=== PATIENT | male | born 1975 | race Caucasian/White ===

== ENCOUNTER 2021-01-06 19:25 | Inpatient (IN) | payer BC ==
[2021-01-06 22:51] LABS: Absolute Lymphocytes (CBC) 2.7 K/uL (0.7-4.9); Basophils % 1.3 % (0-1.3); Hematocrit 25.2 % (39.6-49.0); Lymphocytes % 40.4 % (15.3-44.8); MPV 8.7 fL (7.6-11.3); RBC Red Blood Cell Count 4.05 M/uL (4.33-5.43)
[2021-01-06 22:53] LABS: Protime INR 0.95
[2021-01-06] MEDS ORDERED: NA CHLORIDE 0.9% 250 ML ONE (23:20)
[2021-01-06] MEDS ORDERED: PANTOPRAZOLE 40 MG INJ ONE (23:20)
--- NOTE | 2021-01-06 23:21 | EDPHYS ---
Physician Documentation [facility] Name: Khurram Amanda Age: 45 yrs Sex: Male : 1975 Arrival Date: 01/06/2021 Time: 19:31 Bed 18 Private MD: ED Physician Dale Stacy HPI: 01/06 22:46 This 45 yrs old Male presents to ER via Ambulatory with complaints of LOW rn BLOOD COUNT, black stool. 22:46 The patient presents to the emergency department with rectal bleeding, a small amount, rn dark red blood with bowel movement with multiple such episodes. Onset: The symptoms/episode began/occurred 2 month(s) ago. Abdominal pain: described as achy, located in the epigastric area. Modifying factors: The symptoms are alleviated by nothing, the symptoms are aggravated by nothing. Severity of symptoms: At their worst the symptoms were mild in the emergency department the symptoms are unchanged. The patient has experienced similar episodes in the past. The patient has been recently seen by a physician:. Reports epigastric abd pain, assoc with dark stool and intermittent black stool. no fever. PCP sent blood on Wednesday, called today that hemoglobin low and needs blood transfusion. + hx of gastric ulcers. . Historical: - Allergies: 20:04 No Known Allergies; ca1 - Home Meds: 20:04 None [Active]; ca1 - PMHx: 20:04 Hypertension; ca1 20:04 Ulcers; ca1 - PSHx: 20:04 hand surgery; ca1 - Immunization history:: Client reports having NOT received the Covid vaccine. Flu vaccine is not up to date. - Social history:: Smoking status: Patient denies any tobacco usage or history of. - Family history:: not pertinent. - Hospitalizations: : No recent hospitalization is reported. ROS: 22:46 Constitutional: Negative for fever, chills, and weight loss, Eyes: Negative for injury, rn pain, redness, and discharge, Neck: Negative for injury, pain, and swelling, Cardiovascular: Negative for chest pain, palpitations, and edema, Respiratory: Negative for shortness of breath, cough, wheezing, and pleuritic chest pain, Abdomen/GI: Negative for nausea, vomiting, diarrhea, and constipation, Back: Negative for injury and pain, MS/Extremity: Negative for injury and deformity, Skin: Negative for injury, rash, and discoloration, Neuro: Negative for headache, weakness, numbness, tingling, and seizure. Exam: 22:46 Constitutional: This is a well developed, well nourished patient who is awake, alert, rn and in no acute distress. Head/Face: Normocephalic, atraumatic. Eyes: Pupils equal round and reactive to light, extra-ocular motions intact. Lids and lashes normal. Conjunctiva and sclera are non-icteric and not injected. Cornea within normal limits. Periorbital areas with no swelling, redness, or edema. Cardiovascular: Regular rate and rhythm. No pulse deficits. Respiratory: No increased work of breathing, no retractions or nasal flaring. Abdomen/GI: Soft, non-tender Skin: Warm, dry with normal turgor. Normal color with no rashes, no lesions, and no evidence of cellulitis. MS/ Extremity: Pulses equal, no cyanosis. Neurovascular intact. Full, normal range of motion. Equal circumference. Neuro: Awake and alert, GCS 15 Vital Signs: 19:59 BP 147 / 119; Pulse 85; Resp 17 S; Temp 98.4(TE); Pulse Ox 99% on R/A; Weight 98.88 kg ca1 (R); Height 5 ft. 11 in. (180.34 cm) (R); Pain 0/10; 23:30 BP 133 / 65; Pulse 75; Resp 17; Pulse Ox 100% ; rr5 01/07 00:30 BP 142 / 89; Pulse 85; Resp 16; Pulse Ox 97% ; rr5 01:30 BP 126 / 78; Pulse 80; Resp 16; Pulse Ox 98% ; rr5 02:48 BP 152 / 99; Pulse 89; Resp 16; Pulse Ox 98% ; rr5 03:05 BP 133 / 65; Pulse 86; Resp 19; Temp 97.8; Pulse Ox 98% ; rr5 01/06 19:59 Body Mass Index 30.40 (98.88 kg, 180.34 cm) ca1 MDM: 01/06 21:59 Patient medically screened. rn 23:19 Differential diagnosis: gastritis, gastric ulcer, UGIB. Data reviewed: vital signs, rn nurses notes, lab test result(s), and as a result, I will admit patient. Counseling: I had a detailed discussion with the patient and/or guardian regarding: the historical points, exam findings, and any diagnostic results supporting the discharge/admit diagnosis, lab results, the need for further work-up and treatment in the hospital. Medical screen evaluation completed. EMTALA emergency medical condition absent. Response to treatment: There is no appreciated change of the patient's symptoms at this time, and as a result, I will admit patient. Admission orders: after a detailed discussion of the patient's condition and case, the admit orders are written by me. ED course: Pt with guaiac + stool, hx of gastric ulcer, anemia, will admit for blood transfusion and scope. . 01/06 22:00 Order name: Basic Metabolic Panel; Complete Time: 23:48 01/06 22:00 Order name: CBC with Diff 01/06 22:00 Order name: Hepatic Function; Complete Time: 23:48 01/06 22:00 Order name: Lipase; Complete Time: 23:48 01/06 22:00 Order name: Protime (+inr); Complete Time: 23:00 01/06 22:00 Order name: Ptt, Activated; Complete Time: 23:00 01/06 22:00 Order name: Type And Screen 01/06 22:00 Order name: B12; Complete Time: 23:48 01/06 22:00 Order name: Folic Acid,Serum (folate); Complete Time: 23:48 01/06 22:57 Order name: CBC Smear Scan [facility] 01/06 23:35 Order name: Packed RBC Leukored [facility] 01/07 02:08 Order name: SARS-COV-[address] [facility] 01/07 02:40 Order name: ABO/RH no charge [facility] 01/06 22:00 Order name: IV Saline Lock; Complete Time: 22:34 01/06 22:00 Order name: Labs collected and sent; Complete Time: 22:34 01/06 22:00 Order name: CT Abd/Pelvis - IV Contrast Only 01/06 22:49 Order name: Hemacult; Complete Time: 22:49 rr5 01/07 04:14 Order name: Transfuse; Complete Time: 04:14 rr5 Administered Medications: 23:00 Drug: ProTONIX (pantoprazole) 40 mg Route: IVP; Site: right antecubital; rr5 01/07 00:00 Follow up: Response: No adverse reaction rr5 01/06 23:05 Drug: ProTONIX (pantoprazole) 8 mg/hr Route: IV; Rate: 25 ml/hr; Site: right rr5 antecubital; 01/07 02:43 Follow up: Response: No adverse reaction; IV Status: Infusion continued upon admission; rr5 IV Intake: 100ml Point of Care Testing: Guaiac: 01/06 22:46 Stool Guaiac: Positive; Stool Hemoccult Control: Pass; rn 22:48 Stool Guaiac: Positive; Stool Hemoccult Control: Pass; rr5 Disposition: 01/06/21 23:21 Hospitalization ordered by Nimesh Stacy for Inpatient Admission. Preliminary diagnosis are Melena, Anemia, unspecified, Upper GI bleed. - Bed requested for Telemetry/MedSurg (Inpatient). - Status is Inpatient Admission. rr5 - Condition is Stable. - Problem is an ongoing problem. - Symptoms have improved. Signatures: Dispatcher [employer] [facility] Gisela Hastings RN RN mw Dale Stacy MD MD rn Attema, Lee, TOP LIFT COMPRESSER-C TOP LIFT COMPRESSER-Cla1 Davie Frost RN RN jb4 Nimesh Pisano, RAGHU RN rr5 Florence Jacques RN RN ca1 Corrections: (The following items were deleted from the chart) 01/07 00:42 01/06 23:36 CORONAVIRUS+ ordered. [facility] 01/07 02:31 01/06 23:21 Hospitalization Ordered by Nimesh Stacy MD for Inpatient Admission. Preliminary diagnosis is Melena; Anemia, unspecified; Upper GI bleed. Bed requested for Telemetry/MedSurg (Inpatient). Status is Inpatient Admission. Condition is Stable. Problem is an ongoing problem. Symptoms have improved. rn 01/07 03:54 02:31 01/06/2021 23:21 Hospitalization Ordered by Nimesh Stacy MD for Inpatient jb4 Admission. Preliminary diagnosis is Melena; Anemia, unspecified; Upper GI bleed. Bed requested for Telemetry/MedSurg (Inpatient). Status is Inpatient Admission. Condition is Stable. Problem is an ongoing problem. Symptoms have improved. mw 04:14 03:54 01/06/2021 23:21 Hospitalization Ordered by Nimesh Stacy MD for Inpatient rr5 Admission. Preliminary diagnosis is Melena; Anemia, unspecified; Upper GI bleed. Bed requested for Telemetry/MedSurg (Inpatient). Status is Inpatient Admission. Condition is Stable. Problem is an ongoing problem. Symptoms have improved. jb4
--- NOTE | 2021-01-06 23:21 | ER ---
Nurse's Notes [facility] Name: Khurram Amanda Age: 45 yrs Sex: Male : 1975 Arrival Date: 01/06/2021 Time: 19:31 Bed 18 Private MD: Diagnosis: Melena;Anemia, unspecified;Upper GI bleed Presentation: 01/06 19:59 Chief complaint: Patient states: Routine blood work done Wednesday01/03/2021. Called by ca1 PCP today to come to the ER for HGB 7.0. HX of Ulcers, reports occasional darker stools, reports dizziness and fatigue. Coronavirus screen: Client denies travel out of the [place] in the last 14 days. fatigue, Client presents with at least one sign or symptom that may indicate coronavirus-19. Standard/surgical mask placed on the client. Provider contacted for isolation considerations. Ebola Screen: Patient negative for fever greater than or equal to 101.5 degrees Fahrenheit, and additional compatible Ebola Virus Disease symptoms Patient denies exposure to infectious person. Patient denies travel to an Ebola-affected area in the 21 days before illness onset. No symptoms or risks identified at this time. Initial Sepsis Screen: Does the patient meet any 2 criteria? No. Patient's initial sepsis screen is negative. Does the patient have a suspected source of infection? No. Patient's initial sepsis screen is negative. Risk Assessment: Do you want to hurt yourself or someone else? Patient reports no desire to harm self or others. 19:59 Method Of Arrival: Ambulatory ca1 19:59 Acuity: CHRIS 3 ca1 19:59 Onset of symptoms was January 06, 2021. ca1 Historical: - Allergies: 20:04 No Known Allergies; ca1 - Home Meds: 20:04 None [Active]; ca1 - PMHx: 20:04 Hypertension; ca1 20:04 Ulcers; ca1 - PSHx: 20:04 hand surgery; ca1 - Immunization history:: Client reports having NOT received the Covid vaccine. Flu vaccine is not up to date. - Social history:: Smoking status: Patient denies any tobacco usage or history of. - Family history:: not pertinent. - Hospitalizations: : No recent hospitalization is reported. Screenin:00 Abuse screen: Denies threats or abuse. Denies injuries from another. Nutritional rr5 screening: No deficits noted. Tuberculosis screening: No symptoms or risk factors identified. Fall Risk IV access (20 points). Total Schmitz Fall Scale indicates No Risk (0-24 pts). Assessment: 22:00 General: Appears in no apparent distress. comfortable, Behavior is calm, cooperative, rr5 appropriate for age, Reports fatigue for. Pain: Denies pain. 22:00 Neuro: Level of Consciousness is awake, alert, obeys commands, Oriented to person, rr5 place, time, Reports dizziness. Cardiovascular: Capillary refill < 3 seconds Patient's skin is warm and dry. Respiratory: Airway is patent Respiratory effort is even, unlabored, Respiratory pattern is regular, symmetrical. GI: Abdomen is round Reports black stool. : No signs and/or symptoms were reported regarding the genitourinary system. EENT: No signs and/or symptoms were reported regarding the EENT system. Derm: Skin is intact, is healthy with good turgor, Skin temperature is warm. Musculoskeletal: Capillary refill < 3 seconds. 23:00 Reassessment: Patient appears in no apparent distress at this time. Patient and/or rr5 family updated on plan of care and expected duration. Pain level reassessed. Patient is alert, oriented x 3, equal unlabored respirations, skin warm/dry/pink. 01/07 00:15 Reassessment: Patient appears in no apparent distress at this time. Patient and/or rr5 family updated on plan of care and expected duration. Pain level reassessed. Patient is alert, oriented x 3, equal unlabored respirations, skin warm/dry/pink. awaiting for room assignment and for BT. 00:35 Reassessment: hospitalist at bedside. rr5 01:30 Reassessment: Patient appears in no apparent distress at this time. Patient is alert, rr5 oriented x 3, equal unlabored respirations, skin warm/dry/pink. resting eyes closed breathing spontaneously at room air. 02:36 Reassessment: [id number] jesu mother. rr5 02:40 Reassessment: Patient appears in no apparent distress at this time. Patient is alert, rr5 oriented x 3, equal unlabored respirations, skin warm/dry/pink. for transfer to room [facility]. 03:20 Reassessment: PRBC 1st unit started unit number [id number] 275ml. double checked rr5 with eve KRISHNAMURTHY and started. Vital Signs: 01/06 19:59 BP 147 / 119; Pulse 85; Resp 17 S; Temp 98.4(TE); Pulse Ox 99% on R/A; Weight 98.88 kg ca1 (R); Height 5 ft. 11 in. (180.34 cm) (R); Pain 0/10; 23:30 BP 133 / 65; Pulse 75; Resp 17; Pulse Ox 100% ; rr5 01/07 00:30 BP 142 / 89; Pulse 85; Resp 16; Pulse Ox 97% ; rr5 01:30 BP 126 / 78; Pulse 80; Resp 16; Pulse Ox 98% ; rr5 02:48 BP 152 / 99; Pulse 89; Resp 16; Pulse Ox 98% ; rr5 03:05 BP 133 / 65; Pulse 86; Resp 19; Temp 97.8; Pulse Ox 98% ; rr5 01/06 19:59 Body Mass Index 30.40 (98.88 kg, 180.34 cm) ca1 ED Course: 01/06 19:31 Patient arrived in ED. ag3 20:02 Triage completed. ca1 20:04 Arm band placed on right wrist. ca1 21:55 Nimesh Pisano RN is Primary Nurse. rr5 21:58 Dale Stacy MD is Attending Physician. rn 22:00 Patient has correct armband on for positive identification. Bed in low position. Call rr5 light in reach. desk monitor on. Pulse ox on. NIBP on. 22:34 Inserted saline lock: 20 gauge in right antecubital area, using aseptic technique. dh4 Blood collected. 23:20 Nimesh Stacy MD is Hospitalizing Provider. rn 01/07 00:13 CT Abd/Pelvis - IV Contrast Only In Process Unspecified. EDMS 00:40 COVID swab sent to lab. rr5 01:00 Inserted saline lock: 20 gauge in left forearm, using aseptic technique. rr5 02:37 No provider procedures requiring assistance completed. Patient admitted, IV remains in rr5 place. intact, No redness/swelling at site. Administered Medications: 01/06 23:00 Drug: ProTONIX (pantoprazole) 40 mg Route: IVP; Site: right antecubital; rr5 01/07 00:00 Follow up: Response: No adverse reaction rr5 01/06 23:05 Drug: ProTONIX (pantoprazole) 8 mg/hr Route: IV; Rate: 25 ml/hr; Site: right rr5 antecubital; 01/07 02:43 Follow up: Response: No adverse reaction; IV Status: Infusion continued upon admission; rr5 IV Intake: 100ml Point of Care Testing: Guaiac: 01/06 22:46 Stool Guaiac: Positive; Stool Hemoccult Control: Pass; rn 22:48 Stool Guaiac: Positive; Stool Hemoccult Control: Pass; rr5 Intake: 01/07 02:43 IV: 100ml; Total: 100ml. rr5 Outcome: 01/06 23:21 Decision to Hospitalize by Provider. rn 01/07 02:49 Admitted to Tele accompanied by tech, via wheelchair, room 405, with chart, Report rr5 called to jerome Condition: stable Instructed on the need for admit. 03:54 Patient left the ED. jb4 04:14 Patient left the ED. rr5 Signatures: Dispatcher [employer] EDMS Dale Stacy MD MD rn Bryson, James, RN RN jb4 Sheryl Campbell3 Nimesh Pisano RN RN rr5 Florence Jacques RN RN Grant Portillo John Corrections: (The following items were deleted from the chart) 02:49 02:36 BP 135 / 78; Pulse 80bpm; Resp 16bpm; Pulse Ox 98%; rr5 rr5
[2021-01-06 23:29] LABS: ALT/SGPT 22 U/L (12-78); AST/SGOT 20 U/L (15-37); Albumin 3.9 g/dL (3.4-5.0); Alkaline Phosphatase 68 U/L (45-117); BUN Blood Urea Nitrogen 20 mg/dL (7-18); Bicarbonate 27 mmol/L (21-32); Bilirubin Direct < 0.1 mg/dL (0-0.2); Bilirubin Total 0.3 mg/dL (0.2-1.0); Folic Acid, (Folate) 10.3 ng/mL (3.1-17.5); Glucose Level 103 mg/dL (74-106); Lipase 223 U/L (73-393); Potassium 3.9 mmol/L (3.5-5.1); Protein, Total 7.7 g/dL (6.4-8.2); Sodium Level 142 mmol/L (136-145)
[2021-01-07] MEDS ORDERED: NA CHLORIDE 0.9% 250 ML ONE ×2 (00:30→10:11)
[2021-01-07 00:51] LABS: Blood Morphology Comment NOTED (NOT SEEN); Hypochromasia 2+; Ovalocytes 2+; Platelet Estimate ADEQ; White Blood Cell Scan OK (OK)
--- NOTE | 2021-01-07 02:30 | P.HP ---
Certification for Inpatient Patient admitted to: Inpatient With expected LOS: >2 Midnights Patient will require the following post-hospital care: None Practitioner: I am a practitioner with admitting privileges, knowledge of patient current condition, hospital course, and medical plan of care. Services: Services provided to patient in accordance with Admission requirements found in Title 42 Section 412.3 of the Code of Federal Regulations <Meet Conklin - Last Filed: 01/07/21 02:25> Patient History Date of Service: 01/07/21 Reason for admission: Upper GI bleed History of Present Illness: 45-year-old male with history of hypertension, gastric ulcers presents emergency department for melena, anemia. Patient reports that he has had tarry stools with varying levels of melena over the course of the last 4-6 months. Patient reports being diagnosed with a gastric ulcer between 2018 and 2019. Patient currently takes omeprazole twice daily. Evaluation in the emergency department significant for hemoglobin 7.8 hematocrit 25.2 MCV 62.3 creatinine 1.37 GFR 56, BUN 20. Patient given blood transfusion in the emergency department and started on Protonix drip. ED provider wishes to admit for further evaluation and management - Past Medical/Surgical History -: Gastric ulcers -: Hypertension -: EGD Psychosocial/ Personal History: Patient works as a [employer], lives alone. - Family History Father Notes: No significant past medical history for 1st degree relatives - Social History Smoking Status: Never smoker Alcohol use: No CD- Drugs: No Caffeine use: Yes Place of Residence: Home <Meet Conklin - Last Filed: 01/07/21 02:25> Date of Service: 01/07/21 <Nimesh Stacy - Last Filed: 01/07/21 21:29> Review of Systems 10-point ROS is otherwise unremarkable Gastrointestinal: Nausea, Melena, As per HPI <LindaleeMeet - Last Filed: 01/07/21 02:25> Physical Examination - Physical Exam General: Alert, In no apparent distress HEENT: Atraumatic, PERRLA, Mucous membr. moist/pink Neck: Supple, 2+ carotid pulse no bruit, No LAD Respiratory: Clear to auscultation bilaterally, Normal air movement Cardiovascular: Regular rate/rhythm, Normal S1 S2 Gastrointestinal: Normal bowel sounds, No tenderness Musculoskeletal: No tenderness Integumentary: No rashes Neurological: Normal speech, Normal strength at 5/5 x4 extr, Normal tone, Normal affect - Studies Laboratory Data (last 24 hrs) 01/06/21 22:30: PT 10.9, INR 0.95, APTT 30.8 01/06/21 22:30: WBC 6.70, Hgb 7.8 L*, Hct 25.2 L, Plt Count 215 01/06/21 22:30: Sodium 142, Potassium 3.9, BUN 20 H, Creatinine 1.37 H, Glucose 103, Total Bilirubin 0.3, AST 20, ALT 22, Alkaline Phosphatase 68, Lipase 223 <Meet Conklin - Last Filed: 01/07/21 02:25> - Studies Laboratory Data (last 24 hrs) 01/06/21 22:30: PT 10.9, INR 0.95, APTT 30.8 01/06/21 22:30: WBC 6.70, Hgb 7.8 L*, Hct 25.2 L, Plt Count 215 01/06/21 22:30: Sodium 142, Potassium 3.9, BUN 20 H, Creatinine 1.37 H, Glucose 103, Total Bilirubin 0.3, AST 20, ALT 22, Alkaline Phosphatase 68, Lipase 223 <Nimesh Stacy - Last Filed: 01/07/21 21:29> Assessment and Plan - Plan Assessment Anemia secondary to Upper GI bleed with history of gastric ulcers Renal insufficiency Hypertension Plan Anemia secondary to Upper GI bleed with history of gastric ulcers: Transfuse 1 unit packed red blood cells, repeat hemoglobin hematocrit level. Continue with Protonix drip at this time, GI consult in place. NPO after midnight in case of endoscopy. DVT prophylaxis with SCDs. Renal insufficiency: Patient renal function not far from previous, will provide patient with transfusion, recheck renal function with morning labs. Hypertension: Obtain and continue home medications as appropriate. Discharge Plan: Home Plan to discharge in: 48 Hours - Advance Directives Does patient have a Living Will: No Does patient have a Durable POA for Healthcare: No - Code Status/Comfort Care Code Status Assessed: Yes (Full code) Critical Care: No Time Spent Managing Pts Care (In Minutes): 55 <Meet Conklin - Last Filed: 01/07/21 02:25> - Plan Acute anemia, secondary to UGI bleed, h/o gastric ulcers renal insufficiency 1u PRBC ordered, GI consult, possible EGD <Nimesh Stacy - Last Filed: 01/07/21 21:29>
[2021-01-07] MEDS ORDERED: PANTOPRAZOLE INJ 80 MG in NA CHLORIDE 0.9% 250 ML IV SCH ×2 (04:29→10:30)
[2021-01-07] MEDS ORDERED: ONDANSETRON 4 MG/2 ML VIAL IV PRN (04:29)
[2021-01-07 06:06] LABS: Albumin 3.4 g/dL (3.4-5.0); Bilirubin Total 0.3 mg/dL (0.2-1.0); Magnesium 2.2 mg/dL (1.8-2.4); Potassium 3.9 mmol/L (3.5-5.1); Protein, Total 6.7 g/dL (6.4-8.2); Thyroid Stimulating Hormone 1.62 uIU/mL (0.360-3.740)
[2021-01-07 08:01] LABS: RBC Red Blood Cell Count 3.85 M/uL (4.33-5.43)
[2021-01-07 08:10] VITALS: BMI 30.4
[2021-01-07 10:58] VITALS: O2SAT 95
--- NOTE | 2021-01-07 13:51 | RAD REPORT ---
EXAM DESCRIPTION: CT - Abdomen Pelvis W Contrast - 01/07/2021 6:40 am CLINICAL HISTORY: 45 years, Male, dark stool;Abd pain COMPARISON: None. TECHNIQUE: Contrast-enhanced images of the abdomen and pelvis were performed utilizing 2 mm slice th ickness at 2 mm interval reconstruction from the lung bases to the ischial tuberosities after the adm inistration of IV contrast. In addition multiplanar reformats in the coronal and sagittal plane were obtained and reviewed. An individualized dose optimization technique, Automated Exposure Control, was utilized for the perfo rmed procedure. FINDINGS: The lung bases demonstrate to be clear. There is a small hiatal hernia. The liver, pancreas, spleen and adrenal glands demonstrate to be unremarkable, no focal lesions are n oted. Tiny density within the fundus of the gallbladder could correspond to small calculus, this is i dentified on image 21/60. The kidneys demonstrate normal uptake of contrast media with no evidence for hydronephrosis. There is a upper pole left renal cyst measuring 2.3 cm on image 23/105. Grossly the unopacified stomach, small bowel and large bowel demonstrate to be within normal limits. There is no evidence for bowel dilatation/or free air. There is decompressed left site colon. There is minimal diverticulosis within the sigmoid colon. The appendix is normal. The urinary bladder demonstrate to be unremarkable. The prostate gland is normal. The aorta demon strate to be normal. There is no retroperitoneal lymphadenopathy. There is no evidence for ascites and/or significant abnormal fluid collections. The rest of the soft tissue and bony structures are wi thin normal limits. IMPRESSION: Cholelithiasis. 2.3 cm left renal cyst. Diverticulosis. Small hiatal hernia. No evidence for acute intra-abdominal process Electronically signed by: Zeke Sanabria MD 01/07/2021 12:21 AM CDT Due to temporary technical issues with the PACS/Fluency reporting system, reports are being signed by the in house radiologists without review as a courtesy to insure prompt reporting. The interpreting radiologist is fully responsible for the content of the report.
[2021-01-07 16:15] VITALS: BP 140/93; TEMP 97.7
[2021-01-07 16:43] LABS: Hematocrit 28.3 % (39.6-49.0)
--- NOTE | 2021-01-07 21:34 | P.DS ---
Admission Date: 01/07/21 Discharge Date: 01/07/21 Disposition: ROUTINE DISCHARGE Discharge Condition: GOOD Reason for Admission: Upper GI bleed Consultations: GI - Dr. Walker Procedures: CT Abd/Pelvis (01/06): : Cholelithiasis. 2.3 cm left renal cyst. Diverticulosis. Small hiatal hernia. No evidence for acute intra-abdominal process Problem List: Anemia secondary to Upper GI bleed with history of gastric ulcers Renal insufficiency Hypertension Brief History of Present Illness: 45-year-old male with history of hypertension, gastric ulcers presents emergency department for melena, anemia. Patient reports that he has had tarry stools with varying levels of melena over the course of the last 4-6 months. Patient reports being diagnosed with a gastric ulcer between 2018 and 2019. Patient currently takes omeprazole twice daily. Evaluation in the emergency department significant for hemoglobin 7.8 hematocrit 25.2 MCV 62.3 creatinine 1.37 GFR 56, BUN 20. Patient given blood transfusion in the emergency department and started on Protonix drip. ED provider wishes to admit for further evaluation and management Hospital Course: Patient received 1uPRBC, and Hgb responded appropriately. GI was consulted and patient was to undergo EGD, however OR scheduling issues lead to inability for this to be performed. Patient was feeling better, tolerating full liquid diet and did not have any further melena. He was scheduled for outpatient EGD this coming . He was discharged home, to take omeprazole BID, continue bland diet, and avoid alcohol. Vital Signs/Physical Exam: Physical Exam General: Alert, In no apparent distress HEENT: Atraumatic, PERRL, Mucous membr. moist/pink Neck: Supple, 2+ carotid pulse no bruit, No LAD Respiratory: Clear to auscultation bilaterally, Normal air movement Cardiovascular: Regular rate/rhythm, Normal S1 S2 Gastrointestinal: soft, Normal bowel sounds, No tenderness, non-distended Musculoskeletal: No tenderness Integumentary: No rashes Neurological: Normal speech, Normal strength at 5/5 x4 extr, Normal affect Temp Pulse Resp BP Pulse Ox 97.7 F 73 18 140/93 H 96 01/07/21 16:00 01/07/21 16:00 01/07/21 16:00 01/07/21 16:00 01/07/21 16:00 Laboratory Data at Discharge: WBC Cancelled 01/07/21 05:00 Hgb 8.8 g/dL (13.6-17.9) L 01/07/21 16:28 Hct 28.3 % (39.6-49.0) L 01/07/21 16:28 Plt Count Cancelled 01/07/21 05:00 PT 10.9 SECONDS (9.5-12.5) 01/06/21 22:30 INR 0.95 01/06/21 22:30 APTT 30.8 SECONDS (24.3-36.9) 01/06/21 22:30 Sodium 142 mmol/L (136-145) 01/07/21 05:10 Potassium 3.9 mmol/L (3.5-5.1) 01/07/21 05:10 BUN 18 mg/dL (7-18) 01/07/21 05:10 Creatinine 1.12 mg/dL (0.55-1.3) 01/07/21 05:10 Glucose 101 mg/dL (74-106) 01/07/21 05:10 Magnesium 2.2 mg/dL (1.8-2.4) 01/07/21 05:10 Total Bilirubin 0.3 mg/dL (0.2-1.0) 01/07/21 05:10 AST 18 U/L (15-37) 01/07/21 05:10 ALT 19 U/L (12-78) 01/07/21 05:10 Alkaline Phosphatase 59 U/L (45-117) 01/07/21 05:10 Lipase 223 U/L (73-393) 01/06/21 22:30 Home Medications: Omeprazole 20 mg PO BID 01/07/21 Physician Discharge Instructions: You were found to be anemic, likely from your stomach/esophagus being inflamed. You were transfused 1 unit of blood and your blood count was stable. Please follow up with GI (Dr. Walker) as discussed this coming for a scope (EGD). Please take your omeprazole twice a day until you follow up with Dr. Walker. Diet: Dickenson (full liquid diet) Activity: Ad abhishek Followup: Ziggy Walker MD [ACTIVE - CAN ADMIT] - 01/09/21 (CAll to schedule an appointment) Elias,Kelle, SENIOR CREDIT OFFICER [Primary Care Provider] - 1-2 Weeks (CAll to schedule an appointment) Time spent managing pt's care (in minutes): 35
== END 2021-01-07 18:03 | disposition home or self-care (01) | DRG 368 ==
LOC: ER 19:25 → ERHOLD 01-07 00:49 → 4TH 01-07 02:53
PROVIDERS: ADMIT Hospitalist; ATTEND Hospitalist
PROC: 30233N1 Transfusion of Nonautologous Red Blood Cells into Peripheral Vein, Percutaneous Approach (ICD-10-PCS; principal; 2021-01-07)
DX: K20.91 Esophagitis, unspecified with bleeding (principal); K29.71 Gastritis, unspecified, with bleeding; I10 Essential (primary) hypertension; D64.9 Anemia, unspecified; N28.9 Disorder of kidney and ureter, unspecified; Z20.822 Contact with and (suspected) exposure to COVID-19
CPT/HCPCS: 36415; 36430; 74177; 80048; 80053; 80076; 82607; 82728; 82746; 82947; 83010; 83540; 83615; 83690; 83735; 84439; 84443; 84466; 85014; 85018; 85025; 85044; 85610; 85730; 86850; 86900; 86901; 96365; 96366; 99285; C9113; J7050; P9016; Q9967; U0003

== ENCOUNTER 2022-04-07 07:08 | Emergency (ER) | payer BC, OTHER ==
[2022-04-07] MEDS ORDERED: MORPHINE 4 MG/ML SYR ONE (07:45)
[2022-04-07] MEDS ORDERED: KETOROLAC 30 MG/ML INJ ONE (07:45)
[2022-04-07] MEDS ORDERED: ONDANSETRON 4 MG/2 ML VIAL ONE ×2 (07:46→08:33)
[2022-04-07] MEDS ORDERED: NA CHLORIDE 0.9% 1,000 ML ONE ×2 (07:49→08:33)
[2022-04-07 08:10] LABS: Absolute Lymphocytes (CBC) 1.4 K/uL (0.7-4.9); Hematocrit 27.4 % (39.6-49.0); Lymphocytes % 28.3 % (15.3-44.8); MCV 71.2 fL (80-100); MPV 7.7 fL (7.6-11.3); RBC Red Blood Cell Count 3.85 M/uL (4.33-5.43)
--- NOTE | 2022-04-07 08:13 | RAD REPORT ---
EXAM DESCRIPTION: CT - Stone Protocol - 04/07/2022 7:54 am CLINICAL HISTORY: Flank pain. flank pain COMPARISON: <Comparisons> TECHNIQUE: Axial images were obtained without oral or IV contrast. Lack of contrast limits solid org an and vascular assessment. The [id number] spans the entirety of the system partially obscuring uppermost abdomen and lung bases. Coronal reformatted images were obtained and reviewed. All CT scans are performed using dose optimization technique as appropriate and may include automated exposure control or mA/KV adjustment according to patient size. FINDINGS: The lower lung fernandez are clear. Small hiatal hernia. Cholelithiasis. Imaged portions of the liver and spleen show no suspicious findings on non-contrast imaging. The panc reas and adrenal glands are normal. No pathologic lymphadenopathy in the abdomen or pelvis. 4 mm stone is seen distal right ureter with mild right hydronephrosis and hydroureter present. No bowel obstruction, free air, free fluid or abscess. Normal appendix noted.Mild sigmoid diverticulo sis without diverticulitis. No significant bony abnormality. IMPRESSION: 4 mm stone distal right ureter mild right hydronephrosis. Cholelithiasis. Sigmoid diverticulosis without diverticulitis.
[2022-04-07] MEDS ORDERED: TAMSULOSIN 0.4 MG SR CAP ONE (08:24)
[2022-04-07] MEDS ORDERED: HYDROMORPHONE HCL 1 MG/ML INJ ONE (08:28)
[2022-04-07 08:32] LABS: Albumin 2.9 g/dL (3.4-5.0); Bilirubin Total 0.1 mg/dL (0.2-1.0); Protein, Total 5.8 g/dL (6.4-8.2)
[2022-04-07 08:34] LABS: Potassium 2.7 mmol/L (3.5-5.1)
[2022-04-07 09:00] LABS: Absolute Lymphocytes (CBC) 1.5 K/uL (0.7-4.9); Hematocrit 31.9 % (39.6-49.0); Lymphocytes % 17.5 % (15.3-44.8); MCV 70.4 fL (80-100); MPV 7.6 fL (7.6-11.3); RBC Red Blood Cell Count 4.54 M/uL (4.33-5.43)
[2022-04-07 09:19] LABS: Albumin 3.3 g/dL (3.4-5.0); Bilirubin Total 0.2 mg/dL (0.2-1.0); Potassium 3.6 mmol/L (3.5-5.1); Protein, Total 6.4 g/dL (6.4-8.2)
--- NOTE | 2022-04-07 09:39 | EDPHYS ---
Physician Documentation [facility] Name: Khurram Amanda Age: 46 yrs Sex: Male : 1975 Arrival Date: 04/07/2022 Time: 07:14 Bed 8 Private MD: LONA Physician Richard Centeno HPI: 04/07 07:48 This 46 yrs old Male presents to ER via EMS with complaints of Abdominal Pain.conner 07:48 The patient presents with abdominal pain right lower quadrant. Onset: The conner symptoms/episode began/occurred this morning. The patient complains of pain in the right mid back and right low back. The pain does not radiate. Onset: The symptoms/episode began/occurred this morning. Modifying factors: The symptoms are alleviated by nothing. the symptoms are aggravated by nothing. Associated signs and symptoms: Pertinent positives: nausea. The symptoms radiate to the right flank. Associated signs and symptoms: Pertinent positives: nausea. The symptoms are described as crampy, sharp, steady. Modifying factors: The symptoms are alleviated by nothing, the symptoms are aggravated by nothing. Historical: - Allergies: 07:18 No Known Allergies; jg9 - PMHx: 07:18 Hypertension; Ulcers; jg9 - Immunization history:: Adult Immunizations not up to date. - Social history:: Smoking status: Patient denies any tobacco usage or history of. ROS: 07:48 Constitutional: Negative for fever, chills, and weight loss, Eyes: Negative for injury, conner pain, redness, and discharge, ENT: Negative for injury, pain, and discharge, Neck: Negative for injury, pain, and swelling, Cardiovascular: Negative for chest pain, palpitations, and edema, Respiratory: Negative for shortness of breath, cough, wheezing, and pleuritic chest pain, Abdomen/GI: Negative for abdominal pain, nausea, vomiting, diarrhea, and constipation, : Negative for injury, bleeding, discharge, and swelling, MS/Extremity: Negative for injury and deformity, Skin: Negative for injury, rash, and discoloration, Neuro: Negative for headache, weakness, numbness, tingling, and seizure, Psych: Negative for depression, anxiety, suicide ideation, homicidal ideation, and hallucinations, Allergy/Immunology: Negative for hives, rash, and allergies, Endocrine: Negative for neck swelling, polydipsia, polyuria, polyphagia, and marked weight changes, Hematologic/Lymphatic: Negative for swollen nodes, abnormal bleeding, and unusual bruising. 07:48 Abdomen/GI: Positive for abdominal cramps, of the anterior aspect of right lateral abdomen, posterior aspect of right lateral abdomen and right lower quadrant. 07:48 Back: Positive for Exam: 07:48 Constitutional: This is a well developed, well nourished patient who is awake, alert, conner and in no acute distress. Head/Face: Normocephalic, atraumatic. Eyes: Pupils equal round and reactive to light, extra-ocular motions intact. Lids and lashes normal. Conjunctiva and sclera are non-icteric and not injected. Cornea within normal limits. Periorbital areas with no swelling, redness, or edema. ENT: Nares patent. No nasal discharge, no septal abnormalities noted. Tympanic membranes are normal and external auditory canals are clear. Oropharynx with no redness, swelling, or masses, exudates, or evidence of obstruction, uvula midline. Mucous membranes moist. Neck: Trachea midline, no thyromegaly or masses palpated, and no cervical lymphadenopathy. Supple, full range of motion without nuchal rigidity, or vertebral point tenderness. No Meningismus. Chest/axilla: Normal chest wall appearance and motion. Nontender with no deformity. No lesions are appreciated. Cardiovascular: Regular rate and rhythm with a normal S1 and S2. No gallops, murmurs, or rubs. Normal PMI, no JVD. No pulse deficits. Respiratory: Lungs have equal breath sounds bilaterally, clear to auscultation and percussion. No rales, rhonchi or wheezes noted. No increased work of breathing, no retractions or nasal flaring. Male : Normal genitalia with no discharge or lesions. Skin: Warm, dry with normal turgor. Normal color with no rashes, no lesions, and no evidence of cellulitis. MS/ Extremity: Pulses equal, no cyanosis. Neurovascular intact. Full, normal range of motion. Neuro: Awake and alert, GCS 15, oriented to person, place, time, and situation. Cranial nerves II-XII grossly intact. Motor strength 5/5 in all extremities. Sensory grossly intact. Cerebellar exam normal. Normal gait. Psych: Awake, alert, with orientation to person, place and time. Behavior, mood, and affect are within normal limits. 07:48 Abdomen/GI: Inspection: abdomen appears normal, Bowel sounds: normal, Palpation: abdomen is soft and non-tender, Liver: no appreciated palpable abnormalities, Hernia: not appreciated. Vital Signs: 07:15 BP 157 / 109; Pulse 64; Resp 17 S; Temp 97.7(O); Pulse Ox 93% on R/A; Weight 99.79 kg; jg9 Height 5 ft. 11 in. (180.34 cm) (R); Pain 4/10; 07:30 BP 145 / 101; Pulse 66; Resp 17; Pulse Ox 94% ; Pain 4/10; jg9 08:30 BP 148 / 111; Pulse 75; Resp 14 S; Pulse Ox 92% on R/A; Pain 5/10; j9 09:30 BP 165 / 116; Pulse 80; Resp 20 S; Pulse Ox 99% on R/A; Pain 4/10; jg9 07:15 Body Mass Index 30.68 (99.79 kg, 180.34 cm) 9 MDM: 07:23 Patient medically screened. [facility] 07:48 Data reviewed: vital signs, nurses notes, lab test result(s), radiologic studies, CT conner scan. Data interpreted: alarm security or surveillance monitor: not applicable for this patient encounter. rate is 64 beats/min, rhythm is regular, Pulse oximetry: on room air is 93 %. Counseling: I had a detailed discussion with the patient and/or guardian regarding: the historical points, exam findings, and any diagnostic results supporting the discharge/admit diagnosis, lab results, radiology results, the need for outpatient follow up, for definitive care, a family practitioner, a urologist. 04/07 07:31 Order name: CBC with Diff; Complete Time: 08:18 [facility] 04/07 07:31 Order name: Comprehensive Metabolic Panel; Complete Time: 09:05 [facility] 04/07 07:31 Order name: CT Stone Protocol; Complete Time: 08:18 [facility] 04/07 08:35 Order name: CBC with Diff; Complete Time: 09:05 [facility] 04/07 08:35 Order name: Comprehensive Metabolic Panel; Complete Time: 09:35 [facility] Administered Medications: 09:58 Discontinued: NS 0.9% 1000 ml IV at 1 bolus Per protocol; 1000 mL bolus 9 07:45 Drug: Zofran (Ondansetron) 4 mg Route: IVP; Site: right antecubital; jg9 08:00 Follow up: Response: No adverse reaction; Nausea is decreased jg9 07:47 Drug: Ketorolac 30 mg Route: IVP; Site: right antecubital; jg9 08:00 Follow up: Response: No adverse reaction; Pain is decreased jg9 07:48 Drug: morphine 4 mg Route: IVP; Infused Over: 4 mins; Site: right antecubital; jg9 08:00 Follow up: Response: No adverse reaction; Marked relief of symptoms; Pain is decreased jg9 07:48 Drug: NS 0.9% 1000 ml Route: IV; Rate: 1 bolus; Site: right antecubital; jg9 08:47 Follow up: IV Status: Completed infusion; IV Intake: 1000ml jg9 08:18 Drug: Flomax (tamsulosin) 0.4 mg Route: PO; jg9 08:48 Follow up: Response: No adverse reaction jg9 08:23 Drug: Dilaudid (HYDROmorphone) 1 mg Route: IVP; Site: right antecubital; jg9 08:45 Follow up: Response: No adverse reaction; Marked relief of symptoms jg9 08:23 Not Given (Duplicate Order): Dilaudid (HYDROmorphone) 1 mg IVP once jg9 08:47 Drug: NS 0.9% 1000 ml Route: IV; Rate: 1 bolus; Site: right antecubital; jg9 09:59 Follow up: IV Status: Completed infusion; IV Intake: 250ml jg9 09:59 Not Given (Patient Refused): Zofran (Ondansetron) 4 mg IVP once; over 2 minutes jg9 Disposition Summary: 04/07/22 09:38 Discharge Ordered Location: Home conner Problem: new conner Symptoms: have improved conner Condition: Stable conner Diagnosis - Hydronephrosis with renal and ureteral calculous obstruction conner - Anemia, unspecified conner - Hypocalcemia conner Followup: conner - With: Private Physician - When: 2 - 3 days - Reason: Recheck today's complaints, Continuance of care, Re-evaluation by your physician Followup: conner - With: - When: 2 - 3 days - Reason: Recheck today's complaints, Re-evaluation by your physician Followup: conner - With: - When: 2 - 3 days - Reason: Recheck today's complaints, Re-evaluation by your physician Discharge Instructions: - Discharge Summary Sheet conner - Anemia conner - Kidney Stones conner - Kidney Stones, [id number] conner - Hydronephrosis conner - Hypocalcemia, Adult [facility] - Dietary Guidelines to Help Prevent Kidney Stones [facility] Forms: - Medication Reconciliation Form [facility] - Thank You Letter [facility] - Antibiotic Education [facility] - Prescription Opioid Use [facility] Prescriptions: - Flomax 0.4 mg Oral capsule - take 1 capsule by ORAL route once daily 1/2 hour following the same meal each [facility] day; 30 capsule; Refills: 0, Product Selection Permitted - Zofran 4 mg Oral Tablet - take 1 tablet by ORAL route every 12 hours As needed; 20 tablet; Refills: 0, [facility] Product Selection Permitted - Cipro 500 mg Oral Tablet - take 1 tablet by ORAL route every 12 hours for 7 days; 14 tablet; Refills: 0, [facility] Product Selection Permitted - Tylenol-Codeine #3 300 mg-30 mg Oral - take 2 tablet by ORAL route every 6 hours; 24 tablet; Refills: 0, Product [facility] Selection Permitted - Protonix 40 mg Oral Tablet - take 1 tablet by ORAL route once daily; 30 tablet; Refills: 0, Product [facility] Selection Permitted Signatures: Dispatcher [employer] Richard Gracia MD MD cha Hastedt, Jennifer, RN RN jh6 Allison Jeffrey, RN RN jg9 Corrections: (The following items were deleted from the chart) 09:59 07:36 Urine Dipstick-Ancillary ordered. conner jg9
--- NOTE | 2022-04-07 09:39 | ER ---
Nurse's Notes [facility] Name: Khurram Amanda Age: 46 yrs Sex: Male : 1975 Arrival Date: 04/07/2022 Time: 07:14 Bed 8 Private MD: Diagnosis: Hydronephrosis with renal and ureteral calculous obstruction;Anemia, unspecified;Hypocalcemia Presentation: 04/07 07:15 Chief complaint: Patient states: Patient reports waking up a couple hours ago with RLQ jg9 pain that radiates across the lower abdomen 4/10 currently, EMS gave 15mg tordal and 4mg zofran IV. Patient reported emesis x1, no diarrhea, no abdominal surgeries hx of ulcers reported but this feels different. Coronavirus screen: Vaccine status: Patient reports being unvaccinated. Ebola Screen: Patient negative for fever greater than or equal to 101.5 degrees Fahrenheit, and additional compatible Ebola Virus Disease symptoms Patient denies exposure to infectious person. Patient denies travel to an Ebola-affected area in the 21 days before illness onset. Initial Sepsis Screen: Does the patient meet any 2 criteria? No. Patient's initial sepsis screen is negative. Does the patient have a suspected source of infection? No. Patient's initial sepsis screen is negative. Risk Assessment: Do you want to hurt yourself or someone else? Patient reports no desire to harm self or others. Onset of symptoms was April 07, 2022. 07:15 Method Of Arrival: EMS: [facility] jg9 07:15 Acuity: CHRIS 3 jg9 Triage Assessment: 07:18 General: Appears uncomfortable, Behavior is calm, cooperative. Pain: Complains of pain jg9 in suprapubic area and right lower quadrant Pain currently is 4 out of 10 on a pain scale. Pain began 2 hours ago. EENT: No deficits noted. Neuro: No deficits noted. Cardiovascular: No deficits noted. Respiratory: No deficits noted. GI: Abdomen is flat, Bowel sounds present X 4 quads. Abd is soft X 4 quads Abdomen is tender to palpation in suprapubic area and right lower quadrant Reports lower abdominal pain, nausea, vomiting, Patient currently denies. : No deficits noted. Derm: No deficits noted. Musculoskeletal: No deficits noted. Historical: - Allergies: 07:18 No Known Allergies; jg9 - PMHx: 07:18 Hypertension; Ulcers; jg9 - Immunization history:: Adult Immunizations not up to date. - Social history:: Smoking status: Patient denies any tobacco usage or history of. Screenin:22 Abuse screen: Denies threats or abuse. Denies injuries from another. Nutritional jg9 screening: No deficits noted. Tuberculosis screening: No symptoms or risk factors identified. Fall Risk None identified. Assessment: 07:56 Reassessment: No changes from previously documented assessment. jg9 08:15 Reassessment: Patient and/or family updated on plan of care and expected duration. Pain jg9 level reassessed. Patient is alert, oriented x 3, equal unlabored respirations, skin warm/dry/pink. Patient reports pain is back 10/10, patient yelling in pain and grabbing at r flank/back region-provider notified. Vital Signs: 07:15 BP 157 / 109; Pulse 64; Resp 17 S; Temp 97.7(O); Pulse Ox 93% on R/A; Weight 99.79 kg; jg9 Height 5 ft. 11 in. (180.34 cm) (R); Pain 4/10; 07:30 BP 145 / 101; Pulse 66; Resp 17; Pulse Ox 94% ; Pain 4/10; jg9 08:30 BP 148 / 111; Pulse 75; Resp 14 S; Pulse Ox 92% on R/A; Pain 5/10; jg9 09:30 BP 165 / 116; Pulse 80; Resp 20 S; Pulse Ox 99% on R/A; Pain 4/10; jg9 07:15 Body Mass Index 30.68 (99.79 kg, 180.34 cm) jg9 ED Course: 07:14 Patient arrived in ED. jg9 07:15 Allison Jeffrey RN is Primary Nurse. jg9 07:18 Triage completed. jg9 07:21 Arm band placed on right wrist. jg9 07:22 Patient has correct armband on for positive identification. Bed in low position. Call jg9 light in reach. Side rails up X 1. 07:23 Richard Centeno MD is Attending Physician. conner 07:49 Maintain EMS IV. Dressing intact. Good blood return noted. Site clean \T\ dry. Gauge \T\ jg 9 site: 20g r ac. 07:55 CT Stone Protocol In Process Unspecified. EDMS 08:37 Appears to be sleeping. jg9 09:36 Jorge Lewis MD is Referral Physician. conner 09:36 Kalyn Balderrama MD is Referral Physician. conner 09:59 No provider procedures requiring assistance completed. jg9 09:59 IV discontinued. jg9 Administered Medications: 09:58 Discontinued: NS 0.9% 1000 ml IV at 1 bolus Per protocol; 1000 mL bolus jg9 07:45 Drug: Zofran (Ondansetron) 4 mg Route: IVP; Site: right antecubital; jg9 08:00 Follow up: Response: No adverse reaction; Nausea is decreased jg9 07:47 Drug: Ketorolac 30 mg Route: IVP; Site: right antecubital; jg9 08:00 Follow up: Response: No adverse reaction; Pain is decreased jg9 07:48 Drug: morphine 4 mg Route: IVP; Infused Over: 4 mins; Site: right antecubital; jg9 08:00 Follow up: Response: No adverse reaction; Marked relief of symptoms; Pain is decreased jg9 07:48 Drug: NS 0.9% 1000 ml Route: IV; Rate: 1 bolus; Site: right antecubital; jg9 08:47 Follow up: IV Status: Completed infusion; IV Intake: 1000ml jg9 08:18 Drug: Flomax (tamsulosin) 0.4 mg Route: PO; jg9 08:48 Follow up: Response: No adverse reaction jg9 08:23 Drug: Dilaudid (HYDROmorphone) 1 mg Route: IVP; Site: right antecubital; jg9 08:45 Follow up: Response: No adverse reaction; Marked relief of symptoms jg9 08:23 Not Given (Duplicate Order): Dilaudid (HYDROmorphone) 1 mg IVP once jg9 08:47 Drug: NS 0.9% 1000 ml Route: IV; Rate: 1 bolus; Site: right antecubital; jg9 09:59 Follow up: IV Status: Completed infusion; IV Intake: 250ml jg9 09:59 Not Given (Patient Refused): Zofran (Ondansetron) 4 mg IVP once; over 2 minutes jg9 Medication: 09:59 VIS not applicable for this client. jg9 Intake: 08:47 IV: 1000ml; Total: 1000ml. jg9 09:59 IV: 250ml; Total: 1250ml. jg9 Outcome: 09:38 Discharge ordered by . conner :59 Discharged to home ambulatory. jg9 09:59 Condition: improved 09:59 Discharge instructions given to patient, Instructed on discharge instructions, follow up and referral plans. Demonstrated understanding of instructions, follow-up care, Prescriptions given X 4. 10:00 Patient left the ED. jg9 Signatures: Dispatcher [employer] EDRichard Kovacs MD MD cha Gilmore, Jennifer RN RN jg9
[2022-04-07 10:25] VITALS: TEMP 97.7
[2022-04-07 10:31] VITALS: BP 165/116; O2SAT 99
== END 2022-04-07 10:00 | disposition home or self-care (01) ==
LOC: ER 07:08
DX: N13.2 Hydronephrosis with renal and ureteral calculous obstruction (principal); D64.9 Anemia, unspecified; E83.51 Hypocalcemia; I10 Essential (primary) hypertension
CPT/HCPCS: 96361; 85025 ×2; 36415; 80053 ×2; 76377; 74176; 96375; 96374; 99284; J1170; J7030 ×2; J2405 ×2